=== PATIENT | female | born 1975 | race Two or more races ===

== ENCOUNTER → 2024-05-29 | Outpatient (CLI) | payer MEDICAID, SELFPAY ==
--- NOTE | 2024-05-29 11:00 | XR_ITS ---
Examination: Breast ultrasound, unilateral, left complete Date and time of exam: May 29, 2024 1120 hours INDICATIONS: Left breast pain beginning 18 years ago Technique: Real-time ojeda scale ultrasonographic imaging performed left breast including all 4 quadrants as well as nipple retroareolar and axillary region. Findings: No cystic or solid mass IMPRESSION: BI-RADS Category 1: Negative study Consider standard mammography follow-up
--- NOTE | 2024-05-29 11:45 | XR_ITS ---
Examination: Screening digital mammography, bilateral Computer aided detection 3-D breast Tomosynthesis, bilateral Date and time of exam: May 29, 2024 1125 hours Indication: Screening left breast pain 18 years Technique: Nonmagnified MLO, CC views of the breasts to been obtained, reconstructed from 3-D Tomosynthesis images. R2 computer aided detection program utilized for evaluation of suspicious masses and/or abnormal calcifications. 3-D Tomosynthesis images obtained. Findings: Scattered areas of fibroglandular density Benign calcifications. No suspicious masses Impression: BI-RADS category II: Benign Findings. Recommend 1 year follow-up mammogram.
== END | disposition home or self-care (01) ==
LOC: CDIM 10:58
PROVIDERS: Referring Provider Registered Nurse Community Health; Visit Provider Registered Nurse Community Health
DX: Z12.31 Encounter for screening mammogram for malignant neoplasm of breast (principal); R92.323 Mammographic fibroglandular density, bilateral breasts; R92.1 Mammographic calcification found on diagnostic imaging of breast
CPT/HCPCS: 76641; 77063; 77067

== ENCOUNTER → 2024-09-30 | Outpatient (CLI) | payer MEDICAID, SELFPAY ==
--- NOTE | 2024-09-30 13:00 | XR_ITS ---
Steroid injection right shoulder joint with imaging guidance Fluoroscopy . Exam date and time: 09/30/2024, 12:28 PM Informed consent provided. Fluoroscopy time: 1.2 minutes Dose: 4.32 mGy Technique: A timeout was completed verifying correct patient, procedure, site, positioning. The patient was placed in supine position appropriate for the steroid injection The patient's site was prepped and draped in sterile fashion 5 cc 1% lidocaine administered locally for anesthesia. Sterile drape applied, maximum barrier sterile technique. Utilizing fluoroscopic guidance, 23-gauge needle placed in the right shoulder joint 1 cc Triamcinalone in 5 cc 0.25% Marcaine introduced into the right shoulder joint The patient was in satisfactory and stable condition on completion of the procedure Attending radiologist was present for the entire procedure Estimated blood loss 0 cc. Impression: Successful right shoulder joint steroid injection with imaging guidance .
[2024-09-30] MEDS: BUPIVACAINE MPF 0.5% 30 ML VIAL EPID (13:27)
[2024-09-30] MEDS: LIDOCAINE INJ PF 1% 30 ML VIAL INFL (13:28)
[2024-09-30] MEDS: TRIAMCINOLONE ACET INJ 40 MG/ML VIAL IARTICULAR (13:28)
== END | disposition home or self-care (01) ==
PROVIDERS: PCP Registered Nurse Community Health; Referring Provider Orthopaedic Surgery; Visit Provider Orthopaedic Surgery
DX: M75.01 Adhesive capsulitis of right shoulder (principal); M25.511 Pain in right shoulder
CPT/HCPCS: 20610; 77002; J3301; J3490